=== PATIENT | male | born 2005 | race African-American/Black ===

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

== ENCOUNTER 2024-09-26 07:40 | Emergency (ER) | payer MEDICAID ==
[~2024-09-26] VITALS: Ht 180.3 cm; Wt 73.0 kg
[2024-09-26 08:52] LABS: BASOPHILS % 0.3 % (0.0-2.0); EOSINOPHILS % 0.3 % (0.0-5.0); HEMATOCRIT. 47.4 % (42.0-52.0); HEMOGLOBIN. 15.1 g/dL (14.0-18.0); LYMPHOCYTES % 15.9 % (20.0-50.0); MEAN CORPUSCULAR HEMOGLOBIN 29.8 pg (28.0-32.0); MEAN CORPUSCULAR HGB CONC 31.9 g/dL (31.0-37.0); MEAN CORPUSCULAR VOLUME 93.6 fL (80.0-94.0); MEAN PLATELET VOLUME 8.5 fl (7.4-10.4); MONOCYTES % 7.6 % (2.0-8.0); NEUTROPHILS % 75.9 % (40.0-76.0); PLATELET 149 x1000/uL (130-400); RED BLOOD CELL COUNT 5.07 mill/uL (4.7-6.1); RED CELL DISTRIBUTION WIDTH 13.9 % (11.6-14.6); WHITE BLOOD COUNT 8.5 x1000/uL (4.5-11.0)
[2024-09-26 08:55] LABS: CHLORIDE 103 mEq/L (98-107); POTASSIUM 3.7 mEq/L (3.5-5.1); SODIUM 141 mEq/L (136-145)
[2024-09-26 08:56] LABS: CARBON DIOXIDE 21 mEq/L (21-32)
[2024-09-26 08:57] LABS: CALCIUM 9.5 mg/dL (8.7-10.4)
[2024-09-26 09:01] LABS: GLUCOSE 100 mg/dL (70-105); UREA NITROGEN BLOOD 14 mg/dL (9-23)
[2024-09-26 09:05] LABS: ETHANOL BLOOD < 10 mg/dL (<10)
[2024-09-26] MEDS: LORAZEPAM 2MG/ML INJ IM ONE (09:24)
[2024-09-26] MEDS: OLANZAPINE 10 MG/VIAL IM ONE (09:24)
[2024-09-26 10:29] LABS: CLARITY URINE CLEAR (CLEAR); COLOR URINE DARK YELLOW (YELLOW); GLUCOSE URINE NEGATIVE (NEGATIVE); KETONES URINE 2+ (NEGATIVE); LEUKOCYTE ESTERASE URINE NEGATIVE (NEGATIVE); NITRITE URINE NEGATIVE (NEGATIVE); OCCULT BLOOD URINE NEGATIVE (NEGATIVE); PH URINE 5.5 (4.5-8.0); PROTEIN URINE 1+ (NEGATIVE); SPECIFIC GRAVITY URINE 1.027 (1.005-1.030)
[2024-09-26 10:37] LABS: BACTERIA URINE 1+; RBC URINE 0-2 /hpf (0-2); SQUAMOUS EPITHELIAL CELL URINE FEW /lpf (RARE/1+); YEAST URINE NONE SEEN
[2024-09-26 10:39] LABS: MUCUS URINE 2+ /lpf (NONE/TRACE)
[2024-09-26 11:08] LABS: *AMPHETAMINES SCREEN URINE NEGATIVE (NEGATIVE); *BENZODIAZEPINES SCREEN URINE PRESUMPTIVE POSITIVE (NEGATIVE)
[2024-09-26 11:09] LABS: *BARBITURATES SCREEN URINE NEGATIVE (NEGATIVE); *COCAINE SCREEN URINE NEGATIVE (NEGATIVE); CANNABINOID URINE SCREEN NEGATIVE (NEGATIVE); ECSTASY MDMA SCREEN URINE NEGATIVE (NEGATIVE); METHADONE URINE SCREEN NEGATIVE (NEGATIVE); OPIATES URINE SCREEN NEGATIVE (NEGATIVE); PHENCYCLIDINE URINE SCREEN NEGATIVE (NEGATIVE)
[2024-09-27] MEDS: HALOPERIDOL LACTATE 5MG/ML VIAL IM ONE (12:01)
[2024-09-27] MEDS: OLANZAPINE 10 MG/VIAL IM ONE (12:01)
[2024-09-27 13:00] VITALS: O2SAT 100
[2024-09-27 23:30] VITALS: BP 101/70; PULSE 74; RESP 18; TEMP 36.78072; O2SAT 100
== END 2024-09-27 23:52 ==
LOC: ER 07:40
DX: F20.9 Schizophrenia, unspecified (principal); Z20.822 Contact with and (suspected) exposure to COVID-19
CPT/HCPCS: 80305; 80048; 81003; 80320; 85025; 36415; 96372 ×2; 99285; 87426; J3490 ×2; J2060; Z7610 ×3; J1630; G0480